=== PATIENT | female | born 1985 | race Caucasian/White ===

== ENCOUNTER → 2016-07-17 | Outpatient (CLI) | payer OTHER | LOC: BHSO 12:58 | DX: F41.1 Generalized anxiety disorder (principal) ==

== ENCOUNTER → 2016-09-04 | Outpatient (CLI) | payer OTHER | LOC: BHSO 15:53 | DX: F41.1 Generalized anxiety disorder (principal) ==

== ENCOUNTER → 2016-09-28 | Outpatient (CLI) | payer OTHER | LOC: BHSO 09:38 | DX: F41.1 Generalized anxiety disorder (principal) ==

== ENCOUNTER → 2016-11-20 | Outpatient (CLI) | payer OTHER | LOC: BHSO 10:53 | DX: F41.1 Generalized anxiety disorder (principal) ==

== ENCOUNTER → 2016-12-10 | Outpatient (CLI) | payer OTHER | LOC: BHSO 12:52 | DX: F41.1 Generalized anxiety disorder (principal) ==

== ENCOUNTER → 2016-12-24 | Outpatient (CLI) | payer OTHER | LOC: BHSO 12:42 | DX: F41.1 Generalized anxiety disorder (principal) ==